=== PATIENT | female | born 1990 | race American Indian/Alaskan Native ===

== ENCOUNTER 2019-04-12 21:56 | Outpatient (CLI) | payer OTHER ==
[2019-04-12 22:42] VITALS: BP 119/71
[2019-04-12 23:09] LABS: Bilirubin,Urine NEG (Negative); Blood,Urine NEG (Negative); Color,Urine Yellow (Yellow); Mucus,Urine FEW /HPF; Protein,Urine <15 mg/dL mg/dL (Negative); Urobilinogen,Urine < 2.0 mg/dL (<2.0)
--- NOTE | 2019-04-13 00:20 | Event Note ---
Date: 04/13/19 The patient is a 28 yo at 30.6 wks EGA who presents reporting contractions and back pain. Per RN report, FHT category 1 with accels, no contractions noted on NST or palpated. The patients reports feeling better now that she has rested. Ok for discharge to home with follow up at [facility] in the morning.
== END 2019-04-12 23:52 | disposition home or self-care (01) ==
LOC: TRG 21:56
DX: O47.03 False labor before 37 completed weeks of gestation, third trimester (principal); Z3A.30 30 weeks gestation of pregnancy
CPT/HCPCS: 59025; 81001